=== PATIENT | female | born 1970 | race African-American/Black ===

== ENCOUNTER 2018-03-06 13:20 | Emergency (ER) | payer MEDICAID ==
[~2018-03-06] VITALS: Ht 165.1 cm; Wt 63.0 kg
[2018-03-06 17:54] VITALS: BP 112/73
== END 2018-03-06 17:57 | disposition home or self-care (01) ==
LOC: ER 13:20
DX: S00.83XA Contusion of other part of head, initial encounter (principal); V49.59XA Passenger injured in collision with other motor vehicles in traffic accident, initial encounter; Y93.89 Activity, other specified; Y92.410 Unspecified street and highway as the place of occurrence of the external cause; G96.0 Cerebrospinal fluid leak; K74.60 Unspecified cirrhosis of liver; F17.210 Nicotine dependence, cigarettes, uncomplicated; F12.90 Cannabis use, unspecified, uncomplicated
CPT/HCPCS: 70450; 99284